=== PATIENT | female | born 1970 | race Caucasian/White ===

== ENCOUNTER 2016-08-10 14:45 | Emergency (ER) | payer BC ==
[~2016-08-10] VITALS: Ht 157.5 cm; Wt 56.6 kg
[2016-08-10 15:24] LABS: INTERNAL CONTROL VALID? YES
[2016-08-10 15:28] LABS: ADD MIUA? NO; BILIRUBIN NEGATIVE; BLOOD NEGATIVE; COLOR YELLOW ((YELLOW)); GLUCOSE (STRIP) NEGATIVE; KETONES NEGATIVE; LEUKOCYTES NEGATIVE; NITRITE NEGATIVE; PROTEIN (STRIP) NEGATIVE; UCUL ADDED? NO; UROBILINOGEN 0.2 MG/DL (0.2-1.0)
[2016-08-10] MEDS ORDERED: MOTRIN800 MG PO (17:22)
[2016-08-10] MEDS ORDERED: ULTRACET1 TABLET PO (17:22)
[2016-08-10 17:39] VITALS: BP 132/80
== END 2016-08-10 17:41 | disposition home or self-care (01) ==
LOC: EME 14:45
PROVIDERS: Physician Assistant
DX: N94.10 Unspecified dyspareunia (principal); R10.2 Pelvic and perineal pain
CPT/HCPCS: 76856; 81003; 84703; 87077; 87086; 87186; 99281; 99284; J1885